=== PATIENT | female | born 1980 | race Caucasian/White ===

== ENCOUNTER → 2017-06-06 | Outpatient (CLI) | payer OTHER | LOC: COL.RAD 05-12 14:45 | DX: M47.896 Other spondylosis, lumbar region (principal) ==

== ENCOUNTER → 2020-10-09 | Outpatient (CLI) | payer OTHER ==
[~2020-10-09] MED LIST: ABILIFY20 MG PO; COREG12.5 MG PO; COZAAR100 MG PO; DESYREL 50MG50 MG PO; EFFEXOR100 MG PO; HCTZ 25MG TAB25 MG PO; LANTUS SOLOS100 U/ML SQ; LIPITOR 80MG80 MG PO; NORCO 325 MG-51 TAB PO; OZEMPIC1 MG/0.75 SQ; PROAIR HFA0.09 MG/AC IH; RESTORIL 77.5 MG/CAP PO; ZOLOFT 100MG100 MG PO
[2020-10-09 14:39] LABS: HEMATOCRIT 42.9 % (37.0-47.0); HEMOGLOBIN 14.5 g/dl (12.5-16.0); MEAN CELL VOLUME 101 fl (80.0-100.0); MEAN CORPUSCULAR HEMOGLOBIN 34 pg (27.0-31.0); MEAN CORPUSCULAR HGB CONC 34 g/dl (33.0-37.0); PLATELET COUNT 262 K/mm3 (130-400); RED BLOOD COUNT 4.24 M/mm3 (4.10-5.30); REDCELL DISTRIBUTION WIDTH-CV 12.1 % (11.5-14.5)
[2020-10-09 14:49] LABS: ALBUMIN 4.3 gm/dL (3.5-5.0); BILIRUBIN,TOTAL 0.7 mg/dL (0.0-1.0); CALCIUM 10.1 mg/dL (8.4-10.2); CREATININE, serum 0.76 (0.52-1.25); POTASSIUM 4.1 mmol/L (3.4-5.0); TOTAL PROTEIN 7.9 gm/dL (6.4-8.2)
== END ==
LOC: COL.LAB 14:03
DX: R63.5 Abnormal weight gain (principal); Z98.84 Bariatric surgery status

== ENCOUNTER → 2020-10-12 | Outpatient (CLI) | payer OTHER | LOC: COL.RAD 09:53 | DX: K76.0 Fatty (change of) liver, not elsewhere classified (principal); N83.201 Unspecified ovarian cyst, right side; Z98.84 Bariatric surgery status | CPT/HCPCS: Q9967 ==

== ENCOUNTER → 2020-10-16 | Outpatient (CLI) | payer OTHER | LOC: COL.CARD 07:34 | DX: Z01.810 Encounter for preprocedural cardiovascular examination (principal); R63.5 Abnormal weight gain ==

== ENCOUNTER 2020-12-02 12:21 | Inpatient (IN) | payer OTHER ==
[~2020-12-02] VITALS: Ht 172.7 cm; Wt 158.8 kg
[2020-12-16] VITALS (10 sets, daily range): BP systolic 11–137; BP diastolic 62–97; PULSE 74–96; TEMP 97.4–98.7
[2020-12-16] MEDS ORDERED: COZAAR100 MG PO (07:41)
[2020-12-16] MEDS ORDERED: COREG12.5 MG PO (07:41)
[2020-12-16] MEDS ORDERED: LANTUS SOLOS100 U/ML SQ (07:42)
[2020-12-16] MEDS ORDERED: HCTZ 25MG TAB25 MG PO (07:42)
[2020-12-16] MEDS ORDERED: LIPITOR 80MG80 MG PO (07:42)
[2020-12-16] MEDS ORDERED: OZEMPIC1 MG/0.75 SQ (07:43)
[2020-12-16] MEDS ORDERED: PROAIR HFA0.09 MG/AC IH (07:43)
--- NOTE | 2020-12-16 08:00 | NUR ---
The patient ambulated back to [facility] independently using a steady gait and appeared to tolerate the activity well. Vital signs obtained. Consent signed. 18G IV started in left hand with one stick, NS infusing without difficulty. Assessment completed. brought back to be at her bedside. Call light is within reach. The patient denies any further needs at this time. Will continue to monitor the patient.
[2020-12-16] MEDS ORDERED: DESYREL 50MG50 MG PO (08:36)
[2020-12-16] MEDS ORDERED: RESTORIL 77.5 MG/CAP PO (08:36)
[2020-12-16] MEDS ORDERED: EFFEXOR100 MG PO (08:37)
[2020-12-16] MEDS ORDERED: ABILIFY20 MG PO (08:37)
[2020-12-16] MEDS ORDERED: ZOLOFT 100MG100 MG PO (08:38)
--- NOTE | 2020-12-16 10:50 | NUR ---
The patient was taken back to the Operating Room via cart at this time by NITHIN Aceves. The patient's chart was sent with her to surgery and her belongings were taken to the recovery room and will be transferred with her to her post op room.
--- NOTE | 2020-12-16 17:23 | NUR ---
Patient alert and oriented, answers questions appropriately. See assessment. Lap sites to abdomen with drainage noted. Abdomen soft, tender, non distended. Bowel sounds active x4 quads. Post op exercises reviewed with patient. No c/o at this time.
--- NOTE | 2020-12-16 22:33 | NUR ---
ALERT AND OX4. PAIN LOWER ABD-INCISIONAL 11/27. OXCODONE GIVEN. PM MEDS GIVEN. AC/HS BLOOD SUGAR. BS 117 HELD PM INSULIN. FAIR APPEITITE, FULL LIQ DIET. INCISION TO LOWER ABD LAP SITE X7 BANDAIDE/GAUZE TAPE C/D/I. CALL LIGHT WI REACH. BED IN LOW POSITION. NEEDS MET.
[2020-12-17] VITALS: BP 122/82; PULSE 82; TEMP 98.4
[2020-12-17 03:41] VITALS: BP 118/80; PULSE 78; TEMP 98
--- NOTE | 2020-12-17 06:04 | NUR ---
RESTED THOUGH THE NIGHT WITHOUT INCIDENT. PAIN CONTROLLED OVERNIGHT W OXYCODONE, TYL. LAP SITES REMAIN C/D/I.
[2020-12-17 08:22] VITALS: BP 136/84; PULSE 79; TEMP 98.3
--- NOTE | 2020-12-17 09:23 | NUR ---
Initial visit; Patient thanked Proposal Editor for looking in on her and offering God's blessings and keeping her in Proposal Editor's prayers.
--- NOTE | 2020-12-17 09:41 | NUR ---
NAHOMY met with the patient to discuss discharge plan. The patient lives in [place] with her , Armani (ph#[phone]). She reports independence with ADLs and does not hae any DME. The patient's PCP is Dr. Villa at the [facility] and he receives his medications through the mail from the [place]. The patient does not have a DPOA-HC, but she was interested in obtaining a form. NAHOMY provided. The patient plans to return home with her upon discharge. No additional needs at this time. *Discharge plan: home with her *
[2020-12-17 12:26] VITALS: BP 115/79; PULSE 72; TEMP 98.4
--- NOTE | 2020-12-17 12:28 | NUR ---
Patient alert and oriented, answers questions appropriately. See assessment. Abdomen soft, tender, obese. Bowel sounds active x4 quads. +Flatus. Lap sites to abdomen with edges well approximated, no redness or drainage noted. Band aids changed. Patient has been up to the bathroom and ambulated in tubbs. Post op exercises reviewed. No c/o at this time.
[2020-12-17] MEDS ORDERED: NORCO 325 MG-51 TAB PO (12:48)
--- NOTE | 2020-12-17 13:54 | NUR ---
Discharge instructions reviewed with patient and spouse, verbalized understanding. Discharged ambulatory to auto/home with spouse at 1354.
== END 2020-12-17 13:54 | disposition home or self-care (01) | DRG 621 ==
LOC: INPTSU 12-16 07:18 → SURG 12-16 09:30
PROVIDERS: ADMIT Surgery
PROC: 8E0W4CZ Robotic Assisted Procedure of Trunk Region, Percutaneous Endoscopic Approach (ICD-10-PCS; 2020-12-16)
PROC: 0DP64CZ Removal of Extraluminal Device from Stomach, Percutaneous Endoscopic Approach (ICD-10-PCS; principal; 2020-12-16 09:30)
DX: E66.01 Morbid (severe) obesity due to excess calories (principal); Z68.43 Body mass index [BMI] 50.0-59.9, adult; E78.5 Hyperlipidemia, unspecified; F32.9 Major depressive disorder, single episode, unspecified; K21.9 Gastro-esophageal reflux disease without esophagitis; F43.10 Post-traumatic stress disorder, unspecified; J45.909 Unspecified asthma, uncomplicated; Z98.84 Bariatric surgery status; I10 Essential (primary) hypertension; E88.81 Metabolic syndrome and other insulin resistance; G47.33 Obstructive sleep apnea (adult) (pediatric); E11.9 Type 2 diabetes mellitus without complications; F10.10 Alcohol abuse, uncomplicated; Y90.9 Presence of alcohol in blood, level not specified
CPT/HCPCS: J0690; J1885; J2405; J2550; J2704; J3010; J7030

== ENCOUNTER → 2021-02-26 | Outpatient (CLI) | payer OTHER | LOC: COL.LAB 14:14 | DX: Z01.89 Encounter for other specified special examinations (principal) ==